=== PATIENT | male | born 1970 | race Caucasian/White ===

== ENCOUNTER 2019-06-29 16:08 | Emergency (ER) | payer BC, OTHER ==
[2019-06-29] MEDS ORDERED: Bupivacaine 0.5% 10 ML SDV INFILT ONE (16:09)
--- NOTE | 2019-06-29 17:07 | EDM.PDOC ---
ED HPI GENERAL MEDICAL PROBLEM - General Chief Complaint: Laceration Stated Complaint: CUT LEFT THUMB Time Seen by Provider: 06/29/19 16:56 Source of Information: Reports: Patient, Family History Limitations: Reports: No Limitations - History of Present Illness INITIAL COMMENTS - FREE TEXT/NARRATIVE: 49 y.o.w.m with a H/O HTN came to the ed after he cut corn at at home, by accident into his left thumb, there was initial bleeding, which stopped [employer]. No loss of function, no SOB,m no CP or any other acute med issues. BP 154/76 RR 18 Pulse ox 98% on RA Temp 36.8 Pulse 78 Onset Date: 06/29/19 Onset Time: 16:00 Duration: Minutes: Quality: Reports: Dull Severity: Mild Improves with: Reports: Rest Worsens with: Reports: Movement Context: Reports: Trauma (left thumb) Associated Symptoms: Reports: No Other Symptoms Left Finger-Thumb Pain Score (Numeric/FACES): 2 - Related Data Allergies Allergy/AdvReac Type Severity Reaction Status Date / Time Penicillins Allergy Unknown Other Verified 06/29/19 16:46 Edmond hair Allergy Intermediate Anaphylactic Uncoded 06/29/19 16:46 Shock Home Meds: Home Meds Sulfamethoxazole/Trimethoprim [Bactrim Ds Tablet] 1 each PO BID #20 tablet 06/29 [Rx] ED ROS GENERAL - Review of Systems Review Of Systems: See Below Constitutional: Reports: No Symptoms HEENT: Reports: No Symptoms Respiratory: Reports: No Symptoms Cardiovascular: Reports: No Symptoms Endocrine: Reports: No Symptoms GI/Abdominal: Reports: No Symptoms : Reports: No Symptoms Musculoskeletal: Reports: No Symptoms Skin: Reports: Wound (left thumb) Neurological: Reports: No Symptoms Psychiatric: Reports: No Symptoms Hematologic/Lymphatic: Reports: No Symptoms Immunologic: Reports: No Symptoms ED EXAM, SKIN/RASH Exam: See Below Exam Limited By: No Limitations General Appearance: Alert, WD/WN, Mild Distress Eye Exam: Bilateral Eye: Normal Inspection Ears: Normal External Exam Nose: Normal Inspection Throat/Mouth: Normal Inspection Head: Atraumatic, Normocephalic Neck: Normal Inspection, Supple, Non-Tender, Full Range of Motion Respiratory/Chest: No Respiratory Distress, Lungs Clear, Normal Breath Sounds, No Accessory Muscle Use, Chest Non-Tender Cardiovascular: Normal Peripheral Pulses, Regular Rate, Rhythm, No Edema, No Gallop Peripheral Pulses: 2+: Brachial (L) GI/Abdominal: Normal Bowel Sounds, Soft, Non-Tender (Male) Exam: Deferred Rectal (Males) Exam: Deferred Back Exam: Normal Inspection, Full Range of Motion Extremities: Normal Range of Motion, Non-Tender, Normal Capillary Refill, Other (Laceration left thumb) Neurological: Alert, Oriented, CN II-XII Intact, Normal Cognition, Normal Gait Psychiatric: Normal Affect, Normal Mood Skin: Warm, Dry, Other (Lac left thumb) Lymphatic: No Adenopathy ED SKIN PROCEDURES - Laceration/Wound Repair Left Digit - 1st (Thumb) Appearance: Subcutaneous, Irregular Distal NVT: Neuro & Vascular Intact, No Tendon Injury Anesthetic Type: Local Local Anesthesia - Bupivicaine (Marcaine): 0.5% Plain Local Anesthetic Volume: 3cc Skin Prep: Providone-Iodine (Betadine) Saline Irrigation (cc's): 5 Exploration/Debridement/Repair: Wound Explored, In a Bloodless Field, Explored to Base Closed with: Sutures Lac/Wound length In cm: 4 Suture Size: 4-0 Suture Type: Other (ethilon) Tetanus Status Addressed: Yes (ordered today) Complications: No Course - Vital Signs Text/Narrative:: 49 y.o.w.m with a H/O HTN came to the ed after he cut corn at at home, by accident into his left thumb, there was initial bleeding, which stopped [employer]. No loss of function, no SOB,m no CP or any other acute med issues. BP 154/76 RR 18 Pulse ox 98% on RA Temp 36.8 Pulse 78 PE: WNWD W M with a left thumb LAC Procedure: Please see note above Impression: Left thumb LAC, repaired in the ED TX: Neosporine ointment, Bactrim Reexam: Improved Plan: D/C with instructions Last Recorded V/S: Last Vital Signs Temp 36.6 C 06/29/19 16:30 Pulse 84 06/29/19 16:30 Resp 18 06/29/19 16:30 BP 152/93 H 06/29/19 16:30 Pulse Ox 97 06/29/19 16:30 - Orders/Labs/Meds Orders: Active Orders 24 hr Category Date Time Status Vaccines to be Administered [RC] PER UNIT ROUTINE Care 06/29/19 17:19 Active Meds: Medications Discontinued Medications Generic Name Dose Route Start Last Admin Trade Name Tunde PRN Reason Stop Dose Admin Diphtheria/Tetanus/Acell Pertussis 0.5 ml 06/29/19 17:19 Adacel IM 06/29/19 17:20 .ONCE ONE Trimethoprim/Sulfamethoxazole 1 tab 06/29/19 17:20 Septra Ds PO 06/29/19 17:21 ONETIME STA Departure - Departure Time of Disposition: 17:24 Disposition: Home, Self-Care 01 Condition: Good Clinical Impression: Laceration - Discharge Information Prescriptions: Sulfamethoxazole/Trimethoprim [Bactrim Ds Tablet] 1 each PO BID #20 tablet Referrals: PCP,None [Primary Care Provider] - Forms: ED Department Discharge Additional Instructions: Please apply Neosporin to wound twice daily for 5 days, Wound check in 2 days, suture removal in 10 days, please come back if your symptoms get worse acutely - My Orders Last 24 Hours: My Active Orders 06/29/19 17:19 Vaccines to be Administered [RC] PER UNIT ROUTINE - Assessment/Plan Last 24 Hours: My Active Orders 06/29/19 17:19 Vaccines to be Administered [RC] PER UNIT ROUTINE
[2019-06-29] MEDS ORDERED: Diphtheria,Pertussis(Acell),Tetanus Vaccine 0.5 ML SDV IM ONE (17:19)
[2019-06-29] MEDS ORDERED: Sulfamethoxazole/Trimethoprim 800-160 MG Tab PO STA (17:20)
== END 2019-06-29 17:47 | disposition home or self-care (01) ==
LOC: FB.ED 16:08
DX: S61.012A Laceration without foreign body of left thumb without damage to nail, initial encounter (principal); I10 Essential (primary) hypertension; Z88.0 Allergy status to penicillin; Z91.09 Other allergy status, other than to drugs and biological substances; Y93.G1 Activity, food preparation and clean up; Y92.009 Unspecified place in unspecified non-institutional (private) residence as the place of occurrence of the external cause
CPT/HCPCS: 12002; 90471; 90715; 99282; A9270; J3490; 12013